=== PATIENT | male | born 1950 | race Caucasian/White ===

== ENCOUNTER 2016-12-15 20:26 | Emergency (ER) | payer MEDICARE, MEDICAID ==
[~2016-12-15] VITALS: Ht 182.9 cm; Wt 127.0 kg
[2016-12-15 20:30] VITALS: BP 137/79
[2016-12-15] MEDS ORDERED: METO25TA6 PO (20:36)
[2016-12-15] MEDS ORDERED: ASPIRIN 81 MG TAB.CHEW PO ONE (21:00)
[2016-12-15] MEDS ORDERED: HYDROMORPHONE INJ 2 MG/ML DISP.SYRIN IV ONE (21:00)
[2016-12-15] MEDS ORDERED: ONDANSETRON HCL/PF 4 MG/2 ML VIAL IVP ONE (21:00)
[2016-12-15] MEDS ORDERED: FUROSEMIDE 40 MG/4 ML VIAL IV ONE (21:30)
--- NOTE | 2016-12-15 21:59 | NUR ---
CALLED LAB FOR DRAW
--- NOTE | 2016-12-15 22:04 | NUR ---
PT REFUSING BLOOD DRAW
--- NOTE | 2016-12-15 23:15 | NUR ---
Patient does not wish to proceed with medical care recommended by (PATRICIA). Patient given information related to possible complications, up to and including , which could occur as a result of leaving the hospital at this time. Patient verbalizes understanding of risks involved due to leaving against medical advice. Patient has signed AMA form. pt [id number] no acute distress noted, resp even and unlabored. pt verbalize understanding.
== END 2016-12-15 23:18 | disposition left against medical advice (07) ==
LOC: ER 20:28
DX: R07.89 Other chest pain (principal); I10 Essential (primary) hypertension; I25.2 Old myocardial infarction; Z88.8 Allergy status to other drugs, medicaments and biological substances; Z53.20 Procedure and treatment not carried out because of patient's decision for unspecified reasons
CPT/HCPCS: 71010; 93005; 99284; A4606; Z7610

== ENCOUNTER 2017-09-05 19:55 | Inpatient (IN) | payer MEDICAID, MEDICARE ==
[~2017-09-05] VITALS: Ht 182.9 cm; Wt 97.1 kg
[~2017-09-05 19:55] MED LIST: METO25TA6 PO
--- NOTE | 2017-09-05 19:57 | NUR ---
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 PT PLACED ON MONITOR. STABLE VITALS. REDNESS NOTED TO PERINEAL AND BLE NOTED W/ FOUL SMELL. AWAITING MD IBARRA.
--- NOTE | 2017-09-05 20:08 | NUR ---
DR TAMAYO AT BEDSIDE FOR EVAL.
--- NOTE | 2017-09-05 20:20 | NUR ---
IV LINE STARTED BLOOD DRAWN AND SENT TO LAB.
[2017-09-05] MEDS ORDERED: ASPIRIN 325 MG TABLET PO ONE (20:30)
[2017-09-05] MEDS ORDERED: ASPIRIN 325 MG TABLET ONE (20:33)
--- NOTE | 2017-09-05 20:36 | NUR ---
RADIOLOGY AT BEDSIDE FOR BILAT TIB/FIB AND CHEST XRAY.
[2017-09-05 20:48] LABS: CALCIUM, SERUM 8.6 mg/dL (8.5-10.1); CARBON DIOXIDE 29 mmol/L (21-32); CHLORIDE 100 mmol/L (98-107); CREATININE 0.9 mg/dL (0.6-1.3); GLUCOSE 90 mg/dL (74-106); POTASSIUM 4.1 mmol/L (3.5-5.1); SODIUM SERUM 137 mmol/L (136-145); UREA NITROGEN, BLOOD 11 mg/dL (7-18)
[2017-09-05 20:56] LABS: TROPONIN I < 0.017 ng/mL (0.00-0.056)
[2017-09-05 20:58] LABS: PHENYTOIN (DILANTIN) < 10.0 ug/ml (10.0-20.0)
[2017-09-05 21:01] LABS: BASOPHILS % (AUTO) 0.6 % (0.0-2.0); EOSINOPHILS % (AUTO) 6.3 % (0.0-6.0); HEMATOCRIT 42 % (39-51); HEMOGLOBIN 13.9 g/dL (13.5-17.5); LYMPHOCYTES # (AUTO) 1.7 /CMM (0.8-4.8); LYMPHOCYTES % (AUTO) 21.1 % (20.0-44.0); MEAN CORPUSCULAR HEMOGLOBIN 30 PG (26.0-33.0); MEAN CORPUSCULAR HGB CONC 33 g/dl (31.0-36.0); MEAN CORPUSCULAR VOLUME 91 fL (80-96); MONOCYTES # (AUTO) 0.8 /CMM (0.1-1.30); MONOCYTES % (AUTO) 9.8 % (2.0-12.0); NEUTROPHILS # (AUTO) 5.1 /CMM (1.8-8.9); NEUTROPHILS % (AUTO) 62.2 % (43.0-81.0); PLATELET COUNT (AUTO) 297 /CMM (150-450); RED BLOOD CELL COUNT(AUTO) 4.63 MIL/uL (4.5-6.0); WHITE BLOOD COUNT (AUTO) 8.2 K/uL (4.3-11.0)
--- NOTE | 2017-09-05 21:03 | NUR ---
PATIENT ASSIGNED TO TELE 328-1, ADMITTING ROOM SERVICE ASSOCIATE SALONI SEGURA
[2017-09-05 21:18] LABS: B-TYPE NATRIURETIC PEPTIDE 411 PG/ML (0-125)
--- NOTE | 2017-09-05 21:38 | NUR ---
REPORT GIVEN TO TRAVIS FORRESTER. PT AWAITING TRANSFER TO FLOOR.
[2017-09-05 21:55] VITALS: BP 158/89
--- NOTE | 2017-09-05 21:55 | NUR ---
RN ADMITTING TELE NOTES RECEIVED PATIENT VIA GURNEY, AWAKE ALERT AND ORIENTED X 2-3 NOTED FORGETFUL AT TIMES, RESPIRATIONS EVEN AND UNLABORED WITH EQUAL RISE AND FALL OF CHEST, DENIES ANY CHEST PAIN AT THIS TIME, NO DISCOMFORT, IV SITE TO RIGHT FA #18 G INTACT AND PATENT. NO REDNESS NO INFILTRATION PRESENT, BODY ASSESSMENT DONE, NOTED WITH BLE REDNESS AND SCATTERED SCABS, RIGHT 2ND TOE OPEN WOUND, PERINEAL EXTENDING TO BOTH BUTTOCKS REDNESS, RIGHT ELBOW SCAB, BELONGINGS LIST DONE, NOTED WITH 3 LIGHTERS PLACED IN NURSING STATION, PATIENT PROVIDED WITH CLEANING, ORIENTED TO STAFF AND CALL LIGHT, CALL LIGHT KEPT WITHIN REACH. SAFETY PRECAUTIONS IN PLACE LOW BED, AND LOCKED BED ALARM IN PLACE, MD AWARE OF ADMISSION , AWAITING ORDERS AND WILL CARRY OUT. PATIENT REMAINS COMFORTABLE AT THIS TIME.
[2017-09-05 22:00] VITALS: BP 158/89
[2017-09-05] MEDS ORDERED: PHEN100C4 PO (22:39)
[2017-09-05] MEDS ORDERED: ARIP2TAB3 PO (22:39)
[2017-09-05] MEDS ORDERED: LOSA25TA3 PO (22:39)
[2017-09-05] MEDS ORDERED: ASPI-605 PO (22:39)
[2017-09-05] MEDS ORDERED: FURO-145 PO (22:39)
[2017-09-05] MEDS ORDERED: ENOXAPARIN SODIUM 40 MG/0.4 ML DISP.SYRIN SQ SCH (23:00)
[2017-09-05] MEDS ORDERED: HYDROCODONE/APAP 10/325MG 1 EA TABLET PO PRN (23:00)
[2017-09-05] MEDS ORDERED: FUROSEMIDE 40 MG/4 ML VIAL IV ONE (23:00)
[2017-09-05] MEDS ORDERED: ONDANSETRON HCL/PF 4 MG/2 ML VIAL IVP PRN (23:00)
[2017-09-05] MEDS ORDERED: MAG HYDROX/AL HYDROX/SIMETH 30 ML UDC PO PRN (23:00)
[2017-09-05] MEDS ORDERED: ACETAMINOPHEN 325 MG TABLET PO PRN (23:00)
[2017-09-05] MEDS ORDERED: Z GUARD REMEDY 2 OZ OINT TP PRN (23:00)
[2017-09-05] MEDS ORDERED: MAGNESIUM HYDROXIDE 30 ML UDC PO PRN (23:00)
[2017-09-05] MEDS ORDERED: HYDROCODONE/APAP 5/325MG 1 EACH TABLET PO PRN (23:00)
[2017-09-05] MEDS ORDERED: VANCOMYCIN 1 GM in IV NS 0.9% 250 ML IV ONE (23:30)
[2017-09-05] MEDS ORDERED: VANCOMYCIN 1 GM VIAL ONE (23:50)
[2017-09-06] VITALS (9 sets, daily range): BP systolic 145–164; BP diastolic 75–98
[2017-09-06] MEDS ORDERED: hydrALAZINE HCL IV 20 MG VIAL IV ONE (03:30)
--- NOTE | 2017-09-06 03:48 | NUR ---
LITHOGRAPHIC PHOTOGRAPHER APPRENTICE NOTES PATIENT BLOOD PRESSURE NOTED INCREASED 190/94, HEART RATE 83. PATIENT DENIES ANY PAIN OR DISCOMFORT AT THIS TIME REMAINS COMFORTABLE. MD SEGURA MADE AWARE WITH NEW ORDER FOR HYDRALAZINE IV 10MG ONE TIME. WILL GIVE. WILL CONTINUE TO MONITOR.
--- NOTE | 2017-09-06 04:30 | NUR ---
FINANCIAL SERVICE REP NOTES BLOOD PRESSURE REASSESSED NOTED HYDRALAZINE EFFECTIVE BP 145/86 HR 102
[2017-09-06 05:57] LABS: BASOPHILS % (AUTO) 0.4 % (0.0-2.0); EOSINOPHILS % (AUTO) 5.3 % (0.0-6.0); HEMATOCRIT 41 % (39-51); HEMOGLOBIN 13.7 g/dL (13.5-17.5); LYMPHOCYTES # (AUTO) 0.6 /CMM (0.8-4.8); LYMPHOCYTES % (AUTO) 7.9 % (20.0-44.0); MEAN CORPUSCULAR HEMOGLOBIN 30 PG (26.0-33.0); MEAN CORPUSCULAR HGB CONC 33 g/dl (31.0-36.0); MEAN CORPUSCULAR VOLUME 91 fL (80-96); MONOCYTES # (AUTO) 0.2 /CMM (0.1-1.30); MONOCYTES % (AUTO) 3.1 % (2.0-12.0); NEUTROPHILS # (AUTO) 5.8 /CMM (1.8-8.9); NEUTROPHILS % (AUTO) 83.3 % (43.0-81.0); PLATELET COUNT (AUTO) 268 /CMM (150-450); RDW COEFFICIENT OF VARIATION 14.3 (11.5-15.0); RED BLOOD CELL COUNT(AUTO) 4.57 MIL/uL (4.5-6.0)
[2017-09-06 06:08] LABS: CALCIUM, SERUM 8.4 mg/dL (8.5-10.1); CARBON DIOXIDE 29 mmol/L (21-32); CHLORIDE 101 mmol/L (98-107); GLUCOSE 107 mg/dL (74-106); POTASSIUM 3.3 mmol/L (3.5-5.1); SODIUM SERUM 140 mmol/L (136-145); UREA NITROGEN, BLOOD 10 mg/dL (7-18)
[2017-09-06 06:12] LABS: MAGNESIUM 1.8 mg/dL (1.8-2.4); PHOSPHORUS 3.5 mg/dL (2.5-4.9)
[2017-09-06 06:24] LABS: CHOLESTEROL 163 mg/dL (<200); HDL CHOLESTEROL 64 mg/dL (40-60); LDL 88 mg/dL (0-99); THYROID STIMULATING HORMONE 0.549 uIU/mL (0.358-3.74); TRIGLYCERIDES 47 mg/dL (30-150)
[2017-09-06 06:42] LABS: TROPONIN I < 0.017 ng/mL (0.00-0.056)
--- NOTE | 2017-09-06 06:55 | NUR ---
JIG AND FIXTURE MAKER NOTES PATIENT IN BED SLEEPING BUT EASILY AROUSABLE, VERBALLY RESPONSIVE, RESPIRATIONS EVEN AND UNLABORED WITH EQUAL RISE AND FALL OF CHEST. DENIES ANY CHEST PAIN , PAIN OR DISCOMFORT, IV SITE TO RIGHT AC #18G INTACT AND PATENT, NO REDNESS , NO INFILTRATION PRESENT, ALL NEEDS ATTENDED, SAFETY PRECAUTIONS IN PLACE, CALL ALARM ON, LOW BED AND LOCKED, WILL CONTINUE TO MONITOR AND ENDORSE TO NEXT SHIFT. PATIENT REMAINS COMFORTABLE AT THIS TIME. Addendum: 09/06/17 at 0703 by LUCI FERRARI RN JIG AND FIXTURE MAKER CLOSING NOTES
--- NOTE | 2017-09-06 07:30 | NUR ---
RN OPENING NOTES RECEIVED PT AWAKE ALERT AND VERBALLY RESPONSIVE, NOTED WITH FORGETFULNESS. RESPIRATIONS EVEN AND UNLABORED, DENIES ANY PAIN OR DISCOMFORT AT THIS TIME. SAFETY MEASURES IN PLACE, REMINDED TO ASK FOR ASSISTANCE WHEN NEEDED WITH USE OF CALL LIGHT, CALL LIGHT WITHIN REACH WILL CONTINUE TO MONITOR
[2017-09-06] MEDS ORDERED: FEE PK DOSING 1 MIN EA MC ONE (07:44)
[2017-09-06] MEDS: PHENYTOIN EXTENDED RELEASE 100 MG CAPSULE PO SCH ×3 (08:16→16:43)
[2017-09-06] MEDS: POTASSIUM CHLORIDE 20 MEQ TAB.PRT.SR PO SCH ×2 (08:16→08:32)
[2017-09-06] MEDS: LISINOPRIL (10MG) 10 MG TABLET PO SCH ×2 (08:35→20:50)
[2017-09-06] MEDS ORDERED: METOPROLOL TARTRATE 25 MG TABLET PO SCH (09:00)
[2017-09-06] MEDS ORDERED: LOSARTAN POTASSIUM 25 MG TABLET PO SCH (09:00)
[2017-09-06] MEDS ORDERED: ASPIRIN EC 81 MG TABLET.DR PO SCH (09:00)
[2017-09-06] MEDS ORDERED: ASPIRIN 81 MG TAB.CHEW PO SCH (09:00)
[2017-09-06] MEDS ORDERED: ARIPIPRAZOLE 2 MG TABLET PO SCH (09:00)
--- NOTE | 2017-09-06 09:00 | NUR ---
RN NOTES PT WITH ORDERS FOR LISINOPRIL FOR HIGH BP PER DR ANNALEE GREEN TO ADMINISTER, PT CAN NOT RECALL REACTION ONLY STATES"CANT BREATH" WILL CONTINUE TO MONITOR FOR ANY REACTION
[2017-09-06] MEDS ORDERED: POTASSIUM CHLORIDE 20 MEQ TAB.PRT.SR PO SCH (11:00)
[2017-09-06] MEDS ORDERED: VANCOMYCIN 1.25 GM in IV D5W 500 ML IV SCH (11:00)
--- NOTE | 2017-09-06 11:02 | NUR ---
RN NOTES NO ALLERGIC REACTION NOTED TO ADMINISTRATION OF LISINOPRIL WILL CONTINUE TO MONITOR
--- NOTE | 2017-09-06 19:26 | NUR ---
RN CLOSING NOTES PT AWAKE ALERT AND VERBALLY RESPONSIVE, NOTED WITH FORGETFULNESS. RESPIRATIONS EVEN AND UNLABORED, DENIES ANY PAIN OR DISCOMFORT AT THIS TIME. SAFETY MEASURES IN PLACE, REMINDED TO ASK FOR ASSISTANCE WHEN NEEDED WITH USE OF CALL LIGHT, CALL LIGHT WITHIN REACH WILL CONTINUE TO MONITOR. ENDORSED TO NEXT SHIFT FOR CONTINUITY OF CARE
--- NOTE | 2017-09-06 19:30 | NUR ---
MITZY MS NOTES RECEIVED PATIENT IN BED, AWAKE ALERT AND ORIENTED X3-4, ABLE TO MAKE NEEDS KNOWN, RESPIRATIONS EVEN AND UNLABORED, DENIES ANY PAIN OR DISCOMFORT AT THIS TIME, IV SITE TO RIGHT AC INTACT AND PATENT, NO REDNESS , NO INFILTRATION PRESENT, SAFETY PRECAUTIONS RENDERED, CALL ALARM IN LOW BED AND LOCKED. CALL LIGHT KEPT WITHIN REACH ALL NEEDS ATTENDED WILL CONTINUE TO MONITOR.REMAINS COMFORTABLE AT THIS TIME. Addendum: 09/07/17 at 0204 by LUCI FERRARI RN mitzy ms opening notes
--- NOTE | 2017-09-06 20:30 | NUR ---
RN MS NOTES NOTED PATIENT HAS SCHEDULED LISINOPRIL NOTED PATIENT ALLERGIES TO LISINOPRIL. PER PATIENT STATES HE IS ALLERGIC TO FASINOPRIL. SPOKE TO MD SEGURA REGARDING ALLERGY AND PATIENT STATING HE HAS TROUBLE DIFFUICLUTY BREATHING BUT CLAIMS ITS ON FASINOPRIL AND NOT LISINOPRIL, MADE MD AWARE PATIENT ALSO RECEIVED DOSE IN AM WITH NO REPORTED REACTIONS PER IMELDA CONTINUE AND ADMINISTER AND MONITOR.
--- NOTE | 2017-09-06 21:45 | NUR ---
RN MS NOTES PATIENT STATED HE WANTS TO LEAVE AND SIGN AMA , STATES HE DOESNT NEED TO BE HERE AND WANTS TO GO TO [facility]. ATTEMPTED TO TALK TO PATIENT NOTIFY OF RISKS AND BENEFITS IN REGARS TO STAYING AND AMA STILL REFUSED PATIENT WAS GETTING DRESSED.
--- NOTE | 2017-09-06 21:50 | NUR ---
RN MS NOTES CALLED AND SPOKE TO SALONI SEGURA REGARDING PATIENT AMA , PER MD PATIENT RIGHT. BELONGINGS LIST AND AMA DOCUMENT SIGNED BY PATIENT AND PLACED IN CHART. BELONGINGS GIVEN BACK TO PATIENT, ID BAND REMOVED IV SITE TO RIGHT AC REMOVED NO BLEEDING WHEEL CHAIR BELONGING TO PATIENT WITH HIM
--- NOTE | 2017-09-06 21:55 | NUR ---
RN MS NOTES PATIENT LEFT AMA ACCOMPANIED BY NURSING STAFF LEFT IN STABLE CONDITION. PER PATIENT HE WANTS TO CATCH THE BUS. RN GEOTHERMAL PLANT MANAGER MADE AWARE OF AMA CHARGE NURSE AWARE OF AMA
[2017-09-07] MEDS ORDERED: REGADENOSON 0.4 MG/5 ML DISP.SYRIN IVP ONE (08:00)
== END 2017-09-06 22:00 | disposition left against medical advice (07) | DRG 205 ==
LOC: ER 19:56 → TELE 21:05 → MED 09-06 14:35
PROVIDERS: ADMIT Nurse Practitioner Acute Care; ATTEND Nurse Practitioner Acute Care
DX: M94.0 Chondrocostal junction syndrome [Tietze] (principal); I50.33 Acute on chronic diastolic (congestive) heart failure; L03.116 Cellulitis of left lower limb; L03.115 Cellulitis of right lower limb; I11.0 Hypertensive heart disease with heart failure; F17.210 Nicotine dependence, cigarettes, uncomplicated; I25.2 Old myocardial infarction; Z59.0 Homelessness
CPT/HCPCS: 36415; 71045-TC; 73590-TC; 80048-TC; 80061-TC; 80185-TC; 83735-TC; 83880; 84100-TC; 84443-TC; 84484-TC; 85025-TC; 87081-TC; 93307-TC; A4606; J0360; J1650; J1940; J3370; J7050; J7060; Z7610

== ENCOUNTER 2021-02-12 12:07 | Emergency (ER) | payer MEDICARE, MEDICAID ==
[~2021-02-12 12:07] MED LIST changes: +ARIP2TAB3 PO; +ASPI-605 PO; +FURO-145 PO; +LOSA25TA3 PO; +PHEN100C4 PO
--- NOTE | 2021-02-12 12:12 | NUR ---
BIBRA, PATIENT REFUSED TO BE SEEN
== END 2021-02-12 12:21 | disposition left against medical advice (07) ==
LOC: ER 12:12
DX: Z53.21 Procedure and treatment not carried out due to patient leaving prior to being seen by health care provider (principal)